=== PATIENT | male | born 1980 | race Caucasian/White ===

== ENCOUNTER 2017-03-05 14:10 | Outpatient (CLI) | payer OTHER | END 2017-03-05 14:11 | disposition home or self-care (01) | LOC: DI 14:10 | PROVIDERS: ATTEND General Practice | DX: R07.9 Chest pain, unspecified (principal) | CPT/HCPCS: 93306 ==

== ENCOUNTER 2018-12-01 09:30 | Emergency (ER) | payer OTHER ==
[2018-12-01 09:46] VITALS: BP 133/81
--- NOTE | 2018-12-01 10:21 | XRAY Report ---
Reason: cough/congestion since sunday Procedure Date: 12/01/2018 Accession Number: [id number] / [id number] Procedure: XR - Chest 2 View X-Ray CPT Code: 61923 FULL RESULT: EXAM: CHEST RADIOGRAPHY EXAM DATE: 12/01/2018 10:04 AM. CLINICAL HISTORY: Cough/congestion since sunday. COMPARISON: None. TECHNIQUE: 2 views. FINDINGS: Lungs/Pleura: Minimal linear scarring/atelectasis at the left lower lung laterally, probably lingula. Otherwise no focal opacities evident. No pleural effusion. No pneumothorax. Normal volumes. Mediastinum: Heart and mediastinal contours are unremarkable. Other: None. IMPRESSION: No convincing acute cardiopulmonary abnormality. RADIA
--- NOTE | 2018-12-01 10:35 | ED Physician Documentation ---
PD HPI URI - Stated complaint Stated Complaint: FEVER - Chief complaint Chief Complaint: Resp - History obtained from History obtained from: Patient - History of Present Illness Timing - onset: How many days ago (2) Timing duration: Days (2) Timing details: Gradual onset, Still present Associated symptoms: Fever, Nasal congestion, Rhinorrhea, Sore throat, Dry cough Contributing factors: Sick contact Improves by: Rest, Medication Worsened by: Activity Similar symptoms before: Diagnosis (pneumonia) Recently seen: Not recently seen - Additional information Additional information: 38-year-old male returned from the [facility] and he has developed a fever cough and congestion muscle aches and pains and he has previously had pneumonia. He is coming today concerned that he may be developing similar symptoms. Review of Systems Constitutional: reports: Fever, Chills, Myalgias, Fatigue Eyes: denies: Decreased vision Ears: denies: Ear pain Nose: reports: Rhinorrhea / runny nose, Congestion Throat: reports: Sore throat Cardiac: denies: Chest pain / pressure, Palpitations Respiratory: reports: Cough. denies: Dyspnea GI: denies: Vomiting PD PAST MEDICAL HISTORY - Past Medical History Past Medical History: Yes Cardiovascular: Other Respiratory: Pneumonia - Past Surgical History Past Surgical History: No - Present Medications Home Medications: Ambulatory Orders Medication Instructions Recorded Confirmed Amox/Clav 875/125 [Augmentin] 1 each PO Q12H #20 tablet 12/01/18 Benzonatate [Tessalon Perle] 100 - 200 mg PO TID PRN #30 capsule 12/01/18 - Allergies Allergies/Adverse Reactions: Allergies Allergy/AdvReac Type Severity Reaction Status Date / Time No Known Drug Allergies Allergy Verified 12/01/18 09:45 - Social History Does the pt smoke?: No Smoking Status: Never smoker Does the pt drink ETOH?: No Does the pt have substance abuse?: No - Immunizations Immunizations are current?: Yes - POLST Patient has POLST: No PD ED PE NORMAL - Vitals Vital signs reviewed: Yes (febrile tachy and hypertensive ) - General General: Alert and oriented X 3, No acute distress, Well developed/nourished - HEENT HEENT: Atraumatic, PERRL, EOMI, Other (The right TM is inflamed with rounding of the umbo) - Neck Neck: Supple, no meningeal sign, No bony TTP - Cardiac Cardiac: RRR, No murmur - Respiratory Respiratory: No respiratory distress, Other (diminished breath sounds ) - Abdomen Abdomen: Soft, Non tender - Back Back: No CVA TTP, No spinal TTP - Derm Derm: Normal color, Warm and dry, No rash - Extremities Extremities: No deformity, No edema - Neuro Neuro: Alert and oriented X 3, 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, No motor deficit, No sensory deficit, Normal speech Eye Opening: Spontaneous Motor: Obeys Commands Verbal: Oriented GCS Score: 15 - Psych Psych: Normal mood, Normal affect Results - Vitals Vitals: Vital Signs - 24 hr 12/01/18 09:41 Temperature 37.9 C H Heart Rate 111 H Respiratory 20 Rate Blood Pressure 133/81 H O2 Saturation 94 Oxygen O2 Source Room air - Rads (name of study) chest 2 veiw Radiology: Prelim report reviewed (Impression: No convincing acute cardiopulmonary abnormality.), EMP read indepedently, See rad report PD MEDICAL DECISION MAKING - ED course Complexity details: reviewed results, re-evaluated patient, considered differential, d/w patient ED course: 38-year-old male with cough and congestion has right otitis media. Chest x-ray is without evidence of infiltrate or effusion. He is administered X methadone 10 mg orally and will place him on some Augmentin. Departure - Departure Disposition: 01 Home, Self Care Clinical Impression: Otitis media Qualifiers: Otitis media type: suppurative Chronicity: acute Laterality: right Recurrence: not specified as recurrent Spontaneous tympanic membrane rupture: without sp ontaneous rupture Qualified Code(s): H66.001 - Acute suppurative otitis media without spontaneous rupture of ear drum, right ear Condition: Stable Instructions: ED Otitis Media Acute Adult Follow-Up: ROSY RAMIRES [Primary Care Provider] - Prescriptions: Amox/Clav 875/125 [Augmentin] 1 each PO Q12H #20 tablet Benzonatate [Tessalon Perle] 100 - 200 mg PO TID PRN #30 capsule PRN Reason: Cough
[2018-12-01] MEDS ORDERED: DEXAMETHASONE 10 MG/ML VIAL PO STA (10:40)
[2018-12-01] MEDS ORDERED: CHERRY SYRUP 10 ML UDC PO ONE (10:48)
== END 2018-12-01 10:48 | disposition home or self-care (01) ==
LOC: ED 09:30
DX: H66.001 Acute suppurative otitis media without spontaneous rupture of ear drum, right ear (principal); Z87.01 Personal history of pneumonia (recurrent)
CPT/HCPCS: 71046; 99283; A9270

== ENCOUNTER 2024-04-22 11:21 | Emergency (ER) | payer OTHER ==
[2024-04-22 12:04] VITALS: BP 117/77; O2SAT 96
--- NOTE | 2024-04-22 12:26 | XRAY Report ---
PROCEDURE: Foot 3+V LT INDICATIONS: Trauma TECHNIQUE: 3 views of the foot were acquired. COMPARISON: None. FINDINGS: Bones: No fractures or dislocations. No suspicious bony lesions. Soft tissues: No tibiotalar joint effusion. Achilles tendon appears normal. IMPRESSION: No visualized acute fracture or dislocation. However, occult injury cannot be excluded. Recommend sunil rt interval imaging follow-up in 7-10 days as clinically indicated for additional evaluation. Reviewed by: Yu Avila MD on 04/22/2024 12:24 PM PDT Approved by: Yu Avila MD on 04/22/2024 12:24 PM PDT Station ID: [id number]
--- NOTE | 2024-04-22 13:32 | ED Physician Documentation ---
PD HPI LOWER EXT INJURY - Stated complaint Stated Complaint: LT FOOT PX,SWELLING - Chief complaint Chief Complaint: Trauma Ext - Additional information Additional information: 43-year-old male with history of hypercholesterolemia, pneumonia presents emergency department for left foot pain. Pain is to the dorsal aspect of the lateral region he says that he stepped on it weird a few days ago he has been able to ambulate without any difficulty he said that his noticed yesterday that there was some mild swelling and recommended he go to the ER for x-rays. Patient has not taken anything for the pain he says the pain is very tolerable but he is leaving for [facility] next week so just wanted to make sure that there is no fractures or other acute abnormalities to his foot. PD PAST MEDICAL HISTORY - Past Medical History Past Medical History: Yes Cardiovascular: High cholesterol, Other Respiratory: Pneumonia Neuro: None Endocrine/Autoimmune: None GI: None : None HEENT: None Psych: None Musculoskeletal: None Derm: None - Past Surgical History Past Surgical History: No - Present Medications Home Medications: Ambulatory Orders Medication Instructions Recorded Confirmed Atorvastatin [Lipitor] 20 mg DAILY 04/22/24 04/22/24 Propranolol [Inderal] 20 mg PRN PRN 04/22/24 04/22/24 metFORMIN [Glucophage] 500 mg 04/22/24 - Allergies Allergies/Adverse Reactions: Allergies Allergy/AdvReac Type Severity Reaction Status Date / Time No Known Drug Allergies Allergy Verified 04/22/24 13:04 - Social History Does the pt smoke?: No Smoking Status: Never smoker Does the pt drink ETOH?: Yes Does the pt have substance abuse?: No - Immunizations Immunizations are current?: Yes - POLST Patient has POLST: No PD ED PE NORMAL - Vitals Vital signs reviewed: Yes - Free text exam Free text exam: Left lower extremity: No tenderness with flexion or extension, tenderness with palpation to dorsal lateral region of foot with mild swelling. CMS intact, strong dorsalis pedis pulse. Results - Vitals Vitals: Vital Signs - 24 hr 04/22/24 11:50 Temperature 36.2 C L Heart Rate 69 Respiratory 14 Rate Blood Pressure 117/77 O2 Saturation 96 Oxygen O2 Source Room air - Rads (name of study) Left foot Xray Relevant Findings:: Final report received, EMP independent interpretation of test, Other (No bony fracture or abnormalities. ) PD Medical Decision Making - ED course ED course: 43-year-old male presents emergency department for Left foot pain. Differentials include but not limited to fracture, dislocation, gout, cellulitis, sprain. X-rays are complete for further evaluation and he does not have any bony fractures or abnormalities. He does not have any erythema and is not hot or warm to the touch so I do not believe infection is on the differential and he does not have pain out of proportion making me less suspicious or worried about possible gout. He was offered Tylenol ibuprofen for pain and discomfort and says that his pain is very minimal he does not need any he was also offered crutches and also currently declined these as well. He was told this is most likely a sprain versus strain continue to ambulate on it report to his primary care provider in 7 to 10 days if difficulty with ambulation or pain has gotten worse. Return precautions given all questions answered patient safe for discharge. Departure - Departure Disposition: 01 Home, Self Care Clinical Impression: Swelling of left foot Sprain of left foot Qualifiers: Encounter type: initial encounter Qualified Code(s): S93.602A - Unspecified sprain of left foot, initial encounter Condition: Good Instructions: ED Sprain Foot Comments: Thank you for trusting us with your care. We have completed x-rays of your left foot we are not seeing any acute fractures or other abnormalities. As we discussed I would recommend doing 20 minutes of ice 1 hour off frequently throughout the day elevating above your heart as often as possible to help with inflammation as well as continuing to ambulate on it. You can take Tylenol ibuprofen for pain and discomfort and apply Thierno wrap as needed for any sort of swelling. Can apply Thierno wrap as needed for any sort of swelling. Have a great trip in [facility]! Forms: PCP List Discharge Date/Time: 04/22/24 13:44
== END 2024-04-22 13:44 | disposition home or self-care (01) ==
LOC: ED 11:21
DX: S93.602A Unspecified sprain of left foot, initial encounter (principal); X50.1XXA Overexertion from prolonged static or awkward postures, initial encounter; E78.00 Pure hypercholesterolemia, unspecified; Z79.84 Long term (current) use of oral hypoglycemic drugs; Z79.899 Other long term (current) drug therapy
CPT/HCPCS: 99283